=== PATIENT | female | born 1990 | race Caucasian/White ===

== ENCOUNTER 2019-12-27 17:05 | Emergency (ER) | payer BC ==
--- NOTE | 2019-12-27 17:40 | ED ---
Abdominal Pain HPI - General Chief Complaint: Abdominal Pain Stated Complaint: abd pain Time Seen by Provider: 12/27/19 17:19 Source: patient Mode of arrival: ambulatory Limitations: no limitations - History of Present Illness Initial Comments: 29-year-old female presenting today for chief complaint of lower abdominal pain. Patient states she has periumbilical and right lower quadrant abdominal pain it's been ongoing for the past few days. She states that she attempted to bowel movement and the pain increased she states she noticed a scant amount of blood on the toilet paper and struggles with constipation chronically. Patient denies vomiting, nausea denies lower pelvic pain, , history of /ectopic, vaginal discharge or vaginal bleeding. Denies radiation of pain or fevers. Patient denies upper abdominal pain. Patient appears wel marysol arrival in no acute distress. - Related Data Home Medications Medication Instructions Recorded Confirmed Dextroamphetamine/Amphetamine 30 mg PO BID 12/27/19 12/27/19 [Adderall] Previous Rx's Medication Instructions Recorded Cephalexin [Keflex] 500 mg PO Q6HR 7 Days #28 cap 12/27/19 Allergies Allergy/AdvReac Type Severity Reaction Status Date / Time No Known Allergies Allergy Verified 12/27/19 20:25 Review of Systems ROS Statement: Those systems with pertinent positive or pertinent negative responses have been documented in the HPI. ROS Other: All systems not noted in ROS Statement are negative. Past Medical History Past Medical History: No Reported History History of Any Multi-Drug Resistant Organisms: None Reported Past Surgical History: No Surgical Hx Reported Past Psychological History: No Psychological Hx Reported Smoking Status: Never smoker Past Alcohol Use History: Occasional Past Drug Use History: None Reported General Exam - General Exam Comments Initial Comments: General: The patient is awake and alert, in no distress. Eye: Pupils are equal, round and reactive to light, extra-ocular movements are intact. No nystagmus. There is normal conjunctiva bilaterally. No signs of icterus. Ears, nose, mouth and throat: There are moist mucous membranes and no oral lesions. Neck: The neck is supple, there is no tenderness or JVD. Cardiovascular: There is a regular rate and rhythm. No murmur, rub or gallop is appreciated. Respiratory: Lungs are clear to auscultation, respirations are non-labored, breath sounds are equal. No wheezes, stridor, rales, or rhonchi. Gastrointestinal: Soft, non-distended, Mild-moderate tenderness to palpation of the RLQ tenderness, without masses or organomegaly noted. There is no rebound or guarding present. Musculoskeletal: Normal ROM, no tenderness. Strength 5/5. Sensation intact. Radial pulses equal bilaterally 2+. Neurological: A&O x 3. CN II-XII intact grossly, There are no obvious motor or sensory deficits. Coordination appears grossly intact. Speech is normal. Skin: Skin is warm and dry and no rashes or lesions are noted. Psychiatric: Cooperative, appropriate mood & affect, normal judgment. Limitations: no limitations Course Vital Signs 12/27/19 12/27/19 17:13 22:02 Temperature 97.8 F 98.3 F Pulse Rate 80 77 Respiratory 16 17 Rate Blood Pressure 100/64 102/71 O2 Sat by Pulse 99 99 Oximetry Medical Decision Making - Medical Decision Making 29yo female presenting for RLQ pain states felt higher than "[place]" CT ordered. no appendicitis. US obtained revealing findings that may be consistent with cyst rupture. Patient has no evidence of torsion. Patient pain controlled. Patient labs stable. There is stone in gallbladder. Discussed finding with patilevon nt. Patient is agreeable to discharge with general surgery and OBGYN f/u. Patient discharged appearing well. Discussed case with attending. - Lab Data Result diagrams: 12/27/19 17:57 12/27/19 17:57 Lab Results 12/27/19 12/27/19 12/27/19 Range/Units 17:57 17:57 17:57 WBC 9.9 (3.8-10.6) k/uL RBC 5.18 (3.80-5.40) m/uL Hgb 14.7 (11.4-16.0) gm/dL Hct 46.3 H (34.0-46.0) % MCV 89.3 (80.0-100.0) fL MCH 28.3 (25.0-35.0) pg MCHC 31.7 (31.0-37.0) g/dL RDW 13.1 (11.5-15.5) % Plt Count 348 (150-450) k/uL Neutrophils % 86 % Lymphocytes % 8 % Monocytes % 4 % Eosinophils % 1 % Basophils % 1 % Neutrophils # 8.5 H (1.3-7.7) k/uL Lymphocytes # 0.8 L (1.0-4.8) k/uL Monocytes # 0.4 (0-1.0) k/uL Eosinophils # 0.1 (0-0.7) k/uL Basophils # 0.1 (0-0.2) k/uL Sodium (137-145) mmol/L Potassium (3.5-5.1) mmol/L Chloride (98-107) mmol/L Carbon Dioxide (22-30) mmol/L Anion Gap mmol/L BUN (7-17) mg/dL Creatinine (0.52-1.04) mg/dL Est GFR (CKD-EPI)AfAm (>60 ml/min/1.73 sqM) Est GFR (CKD-EPI)NonAf (>60 ml/min/1.73 sqM) Glucose (74-99) mg/dL Calcium (8.4-10.2) mg/dL Total Bilirubin (0.2-1.3) mg/dL AST (14-36) U/L ALT (4-34) U/L Alkaline Phosphatase (38-126) U/L Total Protein (6.3-8.2) g/dL Albumin (3.5-5.0) g/dL Amylase (30-110) U/L Lipase (23-300) U/L Urine Color Yellow Urine Appearance Turbid H (Clear) Urine pH 5.0 (5.0-8.0) Ur Specific [place] 1.036 H (1.001-1.035) Urine Protein 1+ H (Negative) Urine Glucose (UA) Negative (Negative) Urine Ketones Negative (Negative) Urine Blood Moderate H (Negative) Urine Nitrite Negative (Negative) Urine Bilirubin Negative (Negative) Urine Urobilinogen 2.0 (<2.0) mg/dL Ur Leukocyte Esterase Large H (Negative) Urine RBC 12 H (0-5) /hpf Urine WBC 6 H (0-5) /hpf Ur Squamous Epith Cells 6 H (0-4) /hpf Amorphous Sediment Occasional H (None) /hpf Urine Bacteria Occasional H (None) /hpf Urine Mucus Many H (None) /hpf Urine HCG, Qual Not Detected (Not Detectd) 12/27/19 Range/Units 17:57 WBC (3.8-10.6) k/uL RBC (3.80-5.40) m/uL Hgb (11.4-16.0) gm/dL Hct (34.0-46.0) % MCV (80.0-100.0) fL MCH (25.0-35.0) pg MCHC (31.0-37.0) g/dL RDW (11.5-15.5) % Plt Count (150-450) k/uL Neutrophils % % Lymphocytes % % Monocytes % % Eosinophils % % Basophils % % Neutrophils # (1.3-7.7) k/uL Lymphocytes # (1.0-4.8) k/uL Monocytes # (0-1.0) k/uL Eosinophils # (0-0.7) k/uL Basophils # (0-0.2) k/uL Sodium 138 (137-145) mmol/L Potassium 4.2 (3.5-5.1) mmol/L Chloride 107 (98-107) mmol/L Carbon Dioxide 25 (22-30) mmol/L Anion Gap 6 mmol/L BUN 12 (7-17) mg/dL Creatinine 0.73 (0.52-1.04) mg/dL Est GFR (CKD-EPI)AfAm >90 (>60 ml/min/1.73 sqM) Est GFR (CKD-EPI)NonAf >90 (>60 ml/min/1.73 sqM) Glucose 103 H (74-99) mg/dL Calcium 9.7 (8.4-10.2) mg/dL Total Bilirubin 0.6 (0.2-1.3) mg/dL AST 24 (14-36) U/L ALT 14 (4-34) U/L Alkaline Phosphatase 43 (38-126) U/L Total Protein 7.6 (6.3-8.2) g/dL Albumin 4.6 (3.5-5.0) g/dL Amylase 43 (30-110) U/L Lipase 69 (23-300) U/L Urine Color Urine Appearance (Clear) Urine pH (5.0-8.0) Ur Specific [place] (1.001-1.035) Urine Protein (Negative) Urine Glucose (UA) (Negative) Urine Ketones (Negative) Urine Blood (Negative) Urine Nitrite (Negative) Urine Bilirubin (Negative) Urine Urobilinogen (<2.0) mg/dL Ur Leukocyte Esterase (Negative) Urine RBC (0-5) /hpf Urine WBC (0-5) /hpf Ur Squamous Epith Cells (0-4) /hpf Amorphous Sediment (None) /hpf Urine Bacteria (None) /hpf Urine Mucus (None) /hpf Urine HCG, Qual (Not Detectd) Disposition Clinical Impression: Ovarian cyst rupture, RLQ abdominal pain, Gallstones Disposition: HOME SELF-CARE Condition: Good Instructions (If sedation given, give patient instructions): Abdominal Pain (ED), Ruptured Ovarian Cyst (ED) Additional Instructions: Please use medication as discussed. Please follow-up with family doctor in the next 2 days, OBGYN and general surgery. Please return to emergency room if the symptoms increase or worsen or for any other concerns. Prescriptions: Cephalexin [Keflex] 500 mg PO Q6HR 7 Days #28 cap Is patient prescribed a controlled substance at d/c from ED?: No Referrals: Michelle Del Rosario MD [Primary Care Provider] - 1-2 days Time of Disposition: 21:49
[2019-12-27 18:13] LABS: Basophils # (A) 0.1 k/uL (0-0.2); Basophils % (A) 1 %; Eosinophils # (A) 0.1 k/uL (0-0.7); Eosinophils % (A) 1 %; HCT 46.3 % (34.0-46.0); HGB 14.7 gm/dL (11.4-16.0); Lymphocytes # (A) 0.8 k/uL (1.0-4.8); Lymphocytes % (A) 8 %; MCH 28.3 pg (25.0-35.0); MCHC 31.7 g/dL (31.0-37.0); MCV 89.3 fL (80.0-100.0); Monocytes # (A) 0.4 k/uL (0-1.0); Monocytes % (A) 4 %; Neutrophils # (A) 8.5 k/uL (1.3-7.7); Neutrophils % (A) 86 %; Platelet Count 348 k/uL (150-450); RBC 5.18 m/uL (3.80-5.40); RDW 13.1 % (11.5-15.5); WBC 9.9 k/uL (3.8-10.6)
[2019-12-27 18:26] LABS: ALT 14 U/L (4-34); AST 24 U/L (14-36); African American GFR (CKD) >90 (>60 ml/min/1.73 sqM); Albumin 4.6 g/dL (3.5-5.0); Alkaline Phosphatase 43 U/L (38-126); Amylase 43 U/L (30-110); Anion Gap 6 mmol/L; Blood Urea Nitrogen 12 mg/dL (7-17); Calcium 9.7 mg/dL (8.4-10.2); Carbon Dioxide 25 mmol/L (22-30); Chloride 107 mmol/L (98-107); Glucose 103 mg/dL (74-99); Non-African American GFR(CKD) >90 (>60 ml/min/1.73 sqM); Potassium 4.2 mmol/L (3.5-5.1); Sodium 138 mmol/L (137-145); Total Bilirubin 0.6 mg/dL (0.2-1.3); Total Protein 7.6 g/dL (6.3-8.2)
[2019-12-27 18:27] LABS: Amorphous Sediment,Urine Occasional /hpf; Appearance,Urine Turbid (Clear); Bacteria,Urine Occasional /hpf; Bilirubin,Urine Negative (Negative); Blood,Urine Moderate (Negative); Color,Urine Yellow; Glucose,Urine (UA) Negative (Negative); Ketones,Urine Negative (Negative); Leukocyte Esterase,Urine Large (Negative); Mucus,Urine Many /hpf; Nitrite,Urine Negative (Negative); Protein,Urine 1+ (Negative); RBC,Urine 12 /hpf (0-5); Specific Gravity,Urine 1.036 (1.001-1.035); Squamous Epithelial Cell,Urine 6 /hpf (0-4); WBC,Urine 6 /hpf (0-5)
[2019-12-27] MEDS ORDERED: cefTRIAXone IN SWFI 1,000 MG/10 ML SYRINGE IVP STA (18:28)
[2019-12-27] MEDS ORDERED: HYDROmorphone 0.5 MG/0.5 ML SYRINGE IVP STA (19:20)
--- NOTE | 2019-12-27 20:19 | CT ---
EXAMINATION TYPE: CT abdomen pelvis w con DATE OF EXAM: 12/27/2019 COMPARISON: None HISTORY: abd pain CT DLP: 1509 mGycm Automated exposure control for dose reduction was used. CONTRAST: Performed with IV Contrast, patient injected with 100 mL of Isovue 300. Lung bases are clear of consolidation. Heart size is normal. There is no pericardial effusion. Liver spleen pancreas appear normal. Bile ducts are not dilated. Stomach appears normal. There is rou nded low-density 2 cm focus within the gallbladder. There is no adrenal mass. Kidneys show satisfactory contrast opacification. There is no hydronephrosi s. Ureters are not dilated. There is no retroperitoneal adenopathy. Bladder distends smoothly. Delaye d images show normal renal excretion. There is no mesenteric edema. There is small amount of free fluid in the cul-de-sac. There is no ingu inal hernia. Uterus is anteverted. Lumbar vertebra have normal spacing and alignment. Posterior eleme nts are intact. Bony pelvis is intact. Hip joints are intact. IMPRESSION: There is rounded low-density 2 cm area in the gallbladder that could be a large single cholesterol ga llstone. No dilated ducts. Appendix not seen. No sign of appendicitis.
--- NOTE | 2019-12-27 21:34 | US ---
EXAMINATION TYPE: US transvaginal DATE OF EXAM: 12/27/2019 COMPARISON: CT CLINICAL HISTORY: RLQ pain. RLQ pain x 1 day. . TECHNIQUE: Transvaginal (TV) and Transabdominal (TA) . Date of LMP: 12/14/2019 EXAM MEASUREMENTS: Uterus: 7.8 x 5.2 x 3.9 cm Endometrial Stripe: 0.81 cm Right Ovary: 4.1 x 3.1 x 2.2 cm Left Ovary: 3.8 x 2.0 x 1.8 cm 1. Uterus: Anteverted Appears slightly heterogeneous. Subcentimeter anechoic areas seen in cervix. 2. Endometrium: Measures 0.81 cm. 3. Right Ovary: Measures enlarged. Hypoechoic area with peripheral vascularity seen measurin.8 x 1.6 x 1.1 cm. 4. Left Ovary: Measures slightly enlarged. Anechoic area seen measurin.0 x 0.8 x 0.6 cm. Spectral, color and waveform doppler imaging shows arterial and venous flow within the right ovary . Arterial flow shown within the left ovary. Slightly limited visibility of venous waveform within th e left ovary. 5. Bilateral Adnexa: Fluid seen in right adnexa measurin.5 x 3.7 x 2.2 cm. 6. Posterior cul-de-sac: Minimal fluid seen in CDS. IMPRESSION: There is some free fluid on the right side. No evidence of ovarian torsion. No evidence of a pelvic m ass.
[2019-12-27 22:03] VITALS: BP 102/71; PULSE 77; RESP 17; TEMP 98.3
== END 2019-12-27 22:03 | disposition home or self-care (01) ==
LOC: EC 17:05
DX: K80.20 Calculus of gallbladder without cholecystitis without obstruction (principal); N83.201 Unspecified ovarian cyst, right side
CPT/HCPCS: 36415; 80053; 82150; 83690; 85025; 81001; 81025; 93975; 76830; 74177; 99284; 96374; 96375; J0696; J1170; Q9967

== ENCOUNTER → 2020-06-15 | Outpatient (CLI) | payer BC | END | disposition home or self-care (01) | LOC: LABWHC1 16:11 | PROVIDERS: ATTEND Emergency Medicine | DX: Z20.822 Contact with and (suspected) exposure to COVID-19 (principal) | CPT/HCPCS: U0003; C9803 ==

== ENCOUNTER → 2021-09-26 | Outpatient (CLI) | payer BC ==
[2021-09-26 19:15] LABS: HCT 43.4 % (37.2-46.3); HGB 13.5 g/dL (12.0-15.0); MCH 27.8 pg (27.0-32.0); MCHC 31.1 g/dL (32.0-37.0); MCV 89.5 fL (80.0-97.0); Mean Platelet Volume 12.3 fL (9.5-12.2); NRBC Per 100 WBC 0 /100 WBCS (0.0-0.0); Platelet Count 341 X 10*3/uL (140-440); RBC 4.85 X 10*6/uL (4.10-5.20); RDW 15.9 % (11.5-14.5)
[2021-09-26 21:56] LABS: Triglycerides 51.1 mg/dL (0.00-149.00)
[2021-09-26 22:11] LABS: Anion Gap 18.7 mmol/L (10.00-18.00); Blood Urea Nitrogen 7.7 mg/dL (9.0-27.0); Calcium 9.8 mg/dL (8.7-10.3); Carbon Dioxide 20.8 mmol/L (20.0-27.5); Non-African American GFR(CKD) 118.2 (60.0-200.0); Potassium 4.4 mmol/L (3.5-5.5)
[2021-09-26 22:40] LABS: % Iron Saturation 30.12 (12.00-45.00); Albumin 4.4 g/dL (3.8-4.9); Magnesium 2.1 mg/dL (1.5-2.4); Total Bilirubin 0.4 mg/dL (0.30-1.20); Total Protein 6.6 g/dL (6.2-8.2)
[2021-09-27 00:31] LABS: HDL Cholesterol 63.2 mg/dL (40.00-60.00)
[2021-09-27 16:05] LABS: Zinc, Serum 76 ug/dL (60-130)
== END | disposition home or self-care (01) ==
LOC: LABWHC1 11:54
DX: Z13.228 Encounter for screening for other metabolic disorders (principal); K90.9 Intestinal malabsorption, unspecified; Z98.84 Bariatric surgery status
CPT/HCPCS: 36415; 80051; 82040; 82247; 82306; 82310; 82465; 82565; 82607; 82746; 82947; 83036; 83540; 83550; 83718; 83721; 83735; 84075; 84155; 84207; 84425; 84450; 84460; 84478; 84520; 84590; 84630; 85027

== ENCOUNTER → 2021-12-28 | Outpatient (CLI) | payer BC ==
[2021-12-28 18:00] LABS: HCT 41.2 % (37.2-46.3); HGB 13.1 g/dL (12.0-15.0); MCH 28.6 pg (27.0-32.0); MCHC 31.8 g/dL (32.0-37.0); Mean Platelet Volume 12.2 fL (9.5-12.2); NRBC Per 100 WBC 0 /100 WBCS (0.0-0.0); Platelet Count 355 X 10*3/uL (140-440); RBC 4.58 X 10*6/uL (4.10-5.20); RDW 13.3 % (11.5-14.5); WBC 4.67 X 10*3/uL (4.50-10.00)
[2021-12-28 18:28] LABS: HDL Cholesterol 71.6 mg/dL (40.00-60.00); Triglycerides 41.9 mg/dL (0.00-149.00)
[2021-12-28 18:32] LABS: % Iron Saturation 20.38 (12.00-45.00); Albumin 4.6 g/dL (3.8-4.9); Magnesium 2.3 mg/dL (1.5-2.4); Total Bilirubin 0.5 mg/dL (0.30-1.20)
[2021-12-28 19:06] LABS: African American GFR (CKD) 125.6 (60.0-200.0); Anion Gap 12.2 mmol/L (10.00-18.00); Blood Urea Nitrogen 11.9 mg/dL (9.0-27.0); Carbon Dioxide 22.6 mmol/L (20.0-27.5); Non-African American GFR(CKD) 108.4 (60.0-200.0); Potassium 4.5 mmol/L (3.5-5.5)
== END | disposition home or self-care (01) ==
LOC: LABWHC1 08:44
PROVIDERS: ATTEND Surgery
DX: Z13.228 Encounter for screening for other metabolic disorders (principal); E66.01 Morbid (severe) obesity due to excess calories; Z98.84 Bariatric surgery status
CPT/HCPCS: 36415; 80051; 82040; 82247; 82306; 82310; 82465; 82565; 82607; 82746; 82947; 83036; 83540; 83550; 83718; 83721; 83735; 84075; 84155; 84207; 84425; 84450; 84460; 84478; 84520; 84590; 84630; 85027

== ENCOUNTER → 2022-06-28 | Outpatient (CLI) | payer BC ==
[2022-06-29 02:01] LABS: HGB 12.3 g/dL (12.0-15.0); MCH 29.4 pg (27.0-32.0); MCHC 31.5 g/dL (32.0-37.0); MCV 93.1 fL (80.0-97.0); Mean Platelet Volume 11.8 fL (9.5-12.2); NRBC Per 100 WBC 0 /100 WBCS (0.0-0.0); Platelet Count 371 X 10*3/uL (140-440); RBC 4.19 X 10*6/uL (4.10-5.20); RDW 13.3 % (11.5-14.5); WBC 6.04 X 10*3/uL (4.50-10.00)
[2022-06-29 02:44] LABS: ALT 60 U/L (8-44); AST 28 U/L (13-35); Alkaline Phosphatase 43 U/L (41-126)
[2022-06-29 02:46] LABS: % Iron Saturation 17.01 (12.00-45.00); African American GFR (CKD) 131.4 (60.0-200.0); Bilirubin, Conjugated <0.20 mg/dL (0.20-0.40); Blood Urea Nitrogen 12.7 mg/dL (9.0-27.0); Calcium 10.2 mg/dL (8.7-10.3); Carbon Dioxide 24.9 mmol/L (20.0-27.5); Chloride 103 mmol/L (96-109); Glucose 77 mg/dL (70-110); Iron 62 ug/dL (50-170); Magnesium 2.3 mg/dL (1.5-2.4); Non-African American GFR(CKD) 113.4 (60.0-200.0); Potassium 3.7 mmol/L (3.5-5.5); Sodium 141 mmol/L (135-145); Total Iron Binding Capacity 367 ug/dL (228-460); Total Protein 7.5 g/dL (6.2-8.2)
== END | disposition home or self-care (01) ==
LOC: LABWHC1 15:59
PROVIDERS: ATTEND Surgery
DX: Z13.228 Encounter for screening for other metabolic disorders (principal); E66.01 Morbid (severe) obesity due to excess calories; Z98.84 Bariatric surgery status
CPT/HCPCS: 36415; 80051; 82040; 82248; 82306; 82310; 82465; 82565; 82607; 82746; 82947; 83036; 83540; 83550; 83718; 83721; 83735; 84075; 84155; 84207; 84425; 84450; 84460; 84478; 84520; 84590; 84630; 85027